=== PATIENT | female | born 1965 | race Two or more races ===

== ENCOUNTER 2019-06-11 21:39 | Emergency (ER) | payer MEDICARE ==
[~2019-06-11] VITALS: Ht 157.5 cm; Wt 63.5 kg
[2019-06-11 22:01] LABS: BASOPHILS % (AUTO) 0.4 % (0.0-2.0); EOSINOPHILS % (AUTO) 0.7 % (0.0-6.0); HEMATOCRIT 43 % (33-45); LYMPHOCYTES # (AUTO) 2.8 /CMM (0.8-4.8); MEAN CORPUSCULAR HGB CONC 33 g/dl (31.0-36.0); MEAN CORPUSCULAR VOLUME 91 fL (82-100); MONOCYTES # (AUTO) 0.9 /CMM (0.1-1.30); MONOCYTES % (AUTO) 10.7 % (2.0-12.0); NEUTROPHILS # (AUTO) 4.3 /CMM (1.8-8.9); NEUTROPHILS % (AUTO) 53.2 % (43.0-81.0); PLATELET COUNT (AUTO) 263 /CMM (150-450); RED BLOOD CELL COUNT(AUTO) 4.71 MIL/uL (4.0-5.2); WHITE BLOOD COUNT (AUTO) 8.1 K/uL (4.3-11.0)
[2019-06-11 22:11] LABS: CALCIUM, SERUM 9.5 mg/dL (8.5-10.1); CARBON DIOXIDE 34 mmol/L (21-32); CHLORIDE 99 mmol/L (98-107); CREATININE 0.8 mg/dL (0.6-1.3); GLUCOSE 97 mg/dL (74-106); POTASSIUM 3.8 mmol/L (3.5-5.1); SODIUM SERUM 139 mmol/L (136-145); UREA NITROGEN, BLOOD 18 mg/dL (7-18)
[2019-06-11 22:13] LABS: APPEARANCE,URINE Clear (CLEAR); BILIRUBIN,URINE SMALL (NEGATIVE); BLOOD, URINE Trace-lysed Ery/uL (NEGATIVE); COLOR,URINE Yellow (YELLOW); KETONES,URINE 15 (NEGATIVE); LEUKOCYTE ESTERASE ,URINE Negative (NEGATIVE); NITRITE, URINE Negative (NEGATIVE); PROTEIN,URINE Trace mg/dl (NEGATIVE); UGLUCOSE Negative (NEGATIVE); UROBILINOGEN,URINE 0.2 EU/dL (0.2)
[2019-06-11 22:17] LABS: ACETAMINOPHEN < 2 ug/ml (10-30); ALANINE AMINOTRANSFERASE 29 U/L (12-78); ALBUMIN 4.3 g/dL (3.4-5.0); ALCOHOL, BLOOD < 3 mg/dL (0-0); ALKALINE PHOSPHATASE 86 U/L (46-116); ASPARTATE AMINOTRANSFERASE 26 U/L (15-37); BILIRUBIN,DIRECT 0.1 mg/dL (0.0-0.2); BILIRUBIN,TOTAL 0.3 mg/dL (0.2-1.0); SALICYLATE 1.8 mg/dL (2.8-20.0); TOTAL PROTEIN, SERUM 9.3 g/dL (6.4-8.2)
[2019-06-11 22:23] LABS: BACTERIA,URINE Few /HPF (None Seen); SQUAMOUS EPITHELIAL CELL,UR Few /HPF (None Seen); WBC,URINE NONE SEEN /HPF (0-3)
--- NOTE | 2019-06-11 22:39 | NUR ---
STEFFANIE FROM [facility]. AAOX4. NOT IN RESP DISTRESS. AMBULATORY. CAME IN FOR SUICIDAL THOUGHTS W/ PLAN TO OVERDOSE ON PILLS. PT ALSO STATES THAT SHE HASNT BEEN TAKING HER SEROQUEL FOR THE PAST WEEKS. PT DENIES HI. DENIES HALLUCINATIONS. PT IS GOWN AND BELONGINGS KEPT IN LOCKER LOCATED IN UTILITY ROOM. VISUALLY INSPECTED FOR CONTRABAND. MD WAS AT BEDSIDE FOR EVAL. BLOOD DRAWN AND URINE COLLECTED. 1:1SITTER AT BEDSIDE. WILL CONTINUE TO MONITOR PT.
--- NOTE | 2019-06-11 23:16 | NUR ---
CLINICALS AND FACESHEET FAXED TO [facility] INTAKE FOR VOLUNTARY PSYCH ADMISSION.
--- NOTE | 2019-06-11 23:26 | NUR ---
PT ACCEPTED AT [facility] FOR VOLUNTARY ADMISSION ACCEPTING MD SOLIS PHONE NUMBER FOR REPORT PT WILL BE GOING TO UNIT 2
--- NOTE | 2019-06-11 23:36 | NUR ---
CALLED CARINE JONES CERTIFIED PROSTHETIST/ORTHOTIST ETA [phone]. TRIP # [id number]
[2019-06-12 00:40] VITALS: BP 101/71
--- NOTE | 2019-06-12 00:41 | NUR ---
REPORT GIVEN TO AMY BAEZ FOR BRIAN AT [facility]
--- NOTE | 2019-06-12 00:41 | NUR ---
[id number] AT BEDSIDE FOR PT TRANSPORT. REPORT GIVEN. NAD NOTED. PT IS STABLE FOR TRANSPORT
== END 2019-06-12 00:57 ==
LOC: ER 21:39
DX: R45.851 Suicidal ideations (principal); D64.9 Anemia, unspecified; F20.9 Schizophrenia, unspecified; Z59.0 Homelessness
CPT/HCPCS: 36415; 80048; 80076; 80305; 80307; 80329; 81001; 84703; 85025; 99285; G0480; 81000-TC